=== PATIENT | female | born 1960 | race Native Hawaiian/Other Pacific Islander ===

== ENCOUNTER 2017-07-12 08:58 | Outpatient (CLI) | payer BC ==
[~2017-07-12 08:58] MED LIST: ADIPEX PO; BYSTOLIC10 MG PO; DIOVAN320 MG PO; HYDR25TA60 PO; METO50TA63 PO
== END 2017-07-12 18:04 | disposition home or self-care (01) ==
LOC: RAD 08:58
DX: Z13.820 Encounter for screening for osteoporosis (principal); N95.8 Other specified menopausal and perimenopausal disorders

== ENCOUNTER 2018-07-02 08:59 | Outpatient (CLI) | payer OTHER | END 2018-07-02 22:24 | disposition home or self-care (01) | LOC: RAD 08:59 | DX: M79.671 Pain in right foot (principal); M79.672 Pain in left foot; M25.561 Pain in right knee ==

== ENCOUNTER 2018-09-19 13:37 | Outpatient (CLI) | payer OTHER ==
[2018-09-19 14:16] LABS: PLATELET COUNT 238 K/uL (152-353)
[2018-09-19 14:28] LABS: POTASSIUM 4.6 mmol/L (3.6-5.2)
== END 2018-09-19 23:32 | disposition home or self-care (01) ==
LOC: LAB 13:37
PROVIDERS: Internal Medicine
DX: I10 Essential (primary) hypertension (principal); F41.1 Generalized anxiety disorder; E78.00 Pure hypercholesterolemia, unspecified; R55 Syncope and collapse
CPT/HCPCS: 80053; 81000; 84443; 85027

== ENCOUNTER 2019-03-07 11:08 | Outpatient (CLI) | payer OTHER | END 2019-03-07 19:14 | disposition home or self-care (01) | LOC: RAD 11:08 | DX: R09.1 Pleurisy (principal); R05 Cough ==

== ENCOUNTER 2019-06-21 10:42 | Outpatient (CLI) | payer OTHER | END 2019-06-21 22:47 | disposition home or self-care (01) | LOC: RAD 10:42 | DX: M25.561 Pain in right knee (principal) ==

== ENCOUNTER 2021-10-04 12:22 | Outpatient (CLI) | payer OTHER | END 2021-10-04 18:49 | disposition home or self-care (01) | LOC: RAD 12:22 | PROVIDERS: ATTEND Orthopaedic Surgery | DX: M25.561 Pain in right knee (principal) ==

== ENCOUNTER 2021-11-05 11:46 | Outpatient (CLI) | payer OTHER | END 2021-11-05 19:04 | disposition home or self-care (01) | LOC: RAD 11:46 | PROVIDERS: ATTEND Orthopaedic Surgery | DX: M79.605 Pain in left leg (principal); M25.572 Pain in left ankle and joints of left foot ==

== ENCOUNTER 2022-01-10 14:12 | Outpatient (CLI) | payer OTHER | END 2022-01-10 20:15 | disposition home or self-care (01) | LOC: RAD 14:12 | PROVIDERS: ATTEND Physician Assistant | DX: M25.561 Pain in right knee (principal) ==

== ENCOUNTER 2022-04-19 14:24 | Outpatient (CLI) | payer OTHER | END 2022-04-19 19:03 | disposition home or self-care (01) | LOC: RAD 14:24 | PROVIDERS: ATTEND Orthopaedic Surgery | DX: M25.561 Pain in right knee (principal) ==

== ENCOUNTER 2023-02-06 13:10 | Outpatient (CLI) | payer OTHER | END 2023-02-06 18:56 | disposition home or self-care (01) | LOC: RAD 13:10 | PROVIDERS: ATTEND Physician Assistant | DX: M25.511 Pain in right shoulder (principal) ==